=== PATIENT | male | born 1990 | race Caucasian/White ===

== ENCOUNTER 2018-10-17 16:52 | Observation (INO) | payer BC ==
[~2018-10-17] VITALS: Ht 175.3 cm; Wt 127.9 kg
[2018-10-17 17:02] VITALS: BP 140/80
[2018-10-17 17:37] LABS: INFLUENZA A ANTIGEN None Detected (None Detect); INFLUENZA B ANTIGEN None Detected (None Detect)
[2018-10-17 17:42] LABS: ABSOLUTE LYMPHOCYTES 1.4 thou/uL (0.8-5.3); ABSOLUTE MONOCYTES 1.2 thou/uL (0.0-1.2); ABSOLUTE NEUTROPHILS 4.2 thou/uL (1.6-8.1); BASOPHILS 0.5 %; EOSINOPHILS 0.3 %; HEMATOCRIT 45.5 % (42.0-52.0); HEMOGLOBIN 15.4 gm/dL (14.0-18.0); LYMPHOCYTES 20.2 %; MCH 29.7 pg (26.0-34.0); MCHC 33.8 g/dL (28.0-37.0); MCV 87.8 fL (80.0-100.0); MONOCYTES 17.9 %; MPV 6.6 fl. (7.2-11.1); NUCLEATED RBCS 0 /100WBC; PLATELET COUNT* 137 thou/uL (150-400); POLYS 61.1 %; RBC 5.18 mil/uL (4.50-6.00); RDW-CV 14.9 % (10.5-14.5); WBC 6.9 thou/uL (4.0-11.0)
[2018-10-17 18:02] LABS: CALCIUM 8.7 mg/dL (8.5-10.1); CREATININE 1.2 mg/dL (0.6-1.3); POTASSIUM 3.9 mmol/L (3.5-5.1)
[2018-10-17 18:04] LABS: APTT 30.7 Seconds (25.0-31.3); PROTIME 10.5 Seconds (9.20-11.50)
[2018-10-17 18:07] LABS: ALBUMIN 3.4 g/dL (3.4-5.0); TOTAL BILIRUBIN 0.4 mg/dL (<0.1-1.0); TOTAL PROTEIN 7.6 g/dL (6.4-8.2)
[2018-10-17 20:15] VITALS: BP 115/67
[2018-10-17 20:30] VITALS: BP 112/74
[2018-10-18] VITALS: BP 107/51
[2018-10-18 00:26] LABS: URINE BILIRUBIN NEGATIVE (Negative); URINE BLOOD NEGATIVE (Negative); URINE CLARITY CLEAR; URINE COLOR YELLOW; URINE GLUCOSE-RANDOM NEGATIVE (Negative); URINE KETONES NEGATIVE (Negative); URINE LEUKOCYTES-REFLEX NEGATIVE (Negative); URINE NITRITE-REFLEX NEGATIVE (Negative); URINE PROTEIN NEGATIVE (Negative); URINE SPECIFIC GRAVITY 1.015 (1.005-1.030); URINE UROBILINOGEN 0.2 E.U./dl (0.2-1.0)
[2018-10-18 04:00] VITALS: BP 107/54
--- NOTE | 2018-10-18 06:17 | NUR ---
PT,S NECK PAIN BETTER AFTER TAKING TYLENOL LAST NIGHT. PT RECIEVING IV FUIDS AND IV ANTIBIOTICS FOR TREATMENT OF BILATERAL PNEUMONIA. VITAL SIGNS WITHIN NORMAL LIMITS. O2 SAT 94% ON ROOM AIR. WILL CONTINUE TO MONITOR.
[2018-10-18 08:13] VITALS: BP 108/55
[2018-10-18] MEDS ORDERED: LEVAQUIN 500 M500 M2 PO (09:27)
[2018-10-18 10:42] VITALS: BP 108/55
[2018-10-18 10:54] VITALS: BP 108/55
--- NOTE | 2018-10-18 12:39 | NUR ---
MOVEMENT THERAPIST INFORMED THAT PATIENT WOULD NEED AN APPOINTMENT TO F/U WITH NEUROSURGEON AT D/C. D/C ENVIRONMENTAL SCIENCE PROGRAM DIRECTOR SPOKE TO [facility] TO INFORM OF THE REFERRAL, AND FAXED THE PATIENT'S FACESHEET, H&P, AND ORDER TO F/U. RN INFORMED THAT THEY WILL CONTACT THE PATIENT TO SETUP APPOINTMENT, AND THAT THE PATIENT WILL NEED TO BRING THE MRI DISK WITH HIM TO HIS APPOINTMENT. D/C ENVIRONMENTAL SCIENCE PROGRAM DIRECTOR INFORMED THE RN IN-CHARGE OF THE PATIENT AND THE PATIENT OF THIS INFO. CM WILL REMAIN AVAILABLE TO ASSIST AND FOLLOW NEEDED.
[2018-10-18 12:52] VITALS: BP 108/55
--- NOTE | 2018-10-18 12:52 | NUR ---
PT GIVEN PRESCRIPTIONS, WORK NOTE, AND CARE NOTES. IV REMOVED. PT BELONGINGS GATHERED. PT GIVEN INFORMATION ON A NEUROSURGEON. FALL RISK PRECAUTIONS IN PLACE. HOURLY ROUNDING COMPLETED. PT LEFT VIA WHEELCHAIR WITH NURSING STAFF TO HOME CARE.
== END 2018-10-18 12:54 | disposition home or self-care (01) ==
LOC: M.ERS 16:52 → M.TBA-ER 18:30 → M.ORTHSURG 18:30
PROVIDERS: Nurse Practitioner Family; ADMIT Internal Medicine
DX: J18.9 Pneumonia, unspecified organism (principal); R65.10 Systemic inflammatory response syndrome (SIRS) of non-infectious origin without acute organ dysfunction; G93.0 Cerebral cysts; Z72.0 Tobacco use